=== PATIENT | male | born 1980 | race Caucasian/White ===

== ENCOUNTER 2017-10-09 20:38 | Emergency (ER) | payer SELFPAY ==
[~2017-10-09] VITALS: Ht 177.8 cm; Wt 81.6 kg
[2017-10-09 20:38] VITALS: BP 0/0
[2017-10-09] MEDS ORDERED: IBUPROFEN600 MG ORAL (21:46)
--- NOTE | 2017-10-11 22:49 | Emergency Room Report ---
History of Present Illness General Chief Complaint: General Complaint Source: EMS Present Illness Allergies: Coded Allergies: No Known Allergies (Unverified , 10/10/17) UNABLE TO ASSESS (Unverified , 10/09/17) Physical Exam Vital Signs Date Time Temp Pulse Resp B/P (MAP) Pulse Ox O2 Delivery O2 Flow Rate FiO2 10/09/17 20:38 0/0 Medical Decision Making Diagnostic Impression: Primary Impression: Encounter for generalized patient complaints Last Vital Signs Date Time Temp Pulse Resp B/P (MAP) Pulse Ox O2 Delivery O2 Flow Rate FiO2 10/09/17 20:38 0/0 Disposition: LEFT W/OUT BEING SEEN Condition: Unknown Referrals: NOT CHOSEN IPA/,REFERRING (PCP) ADRIA CHAN M.D. Oct 11, 2017 22:49
== END 2017-10-09 20:45 | disposition left against medical advice (07) ==
LOC: EDBD 20:38 → EMR 20:42 → EDBD 20:42 → EMR 20:45
DX: E86.0 Dehydration (principal); Z53.21 Procedure and treatment not carried out due to patient leaving prior to being seen by health care provider
CPT/HCPCS: 99281

== ENCOUNTER 2017-10-09 21:26 | Emergency (ER) | payer SELFPAY ==
[~2017-10-09] VITALS: Ht 185.4 cm; Wt 113.4 kg
[2017-10-09 21:38] VITALS: BP 165/89
[2017-10-09] MEDS ORDERED: IBUPROFEN600 MG ORAL (21:46)
--- NOTE | 2017-10-09 21:46 | Emergency Room Report ---
History of Present Illness General Chief Complaint: Wound Recheck/Suture Removal Source: Patient Present Illness HPI Is a 37-year-old male with no past medical history. He presents with chief complaint of pain to both feet. He said that his girlfriend kicked him out of the house he's been walking from [place] to here. The water versus 4 days. He has twisted to the sole sole of both feet. No other injury. Pain is 8/10. Worse with walking. Better with rest. Allergies: Coded Allergies: No Known Allergies (Unverified , 10/09/17) Patient History Past Medical History: see triage record, old chart reviewed Past Surgical History: none Pertinent Family History: none Social History: Reports: drug use Immunizations: other Reviewed Nursing Documentation: PMH: Agreed, PSxH: Agreed Nursing Documentation-PM Past Medical History: No Stated History Review of Systems Eye: Denies: eye pain, blurred vision ENT: Denies: ear pain, nose congestion, throat swelling Respiratory: Denies: cough, shortness of breath Cardiovascular: Denies: chest pain, palpitations Gastrointestinal: Denies: abdominal pain, diarrhea, nausea, vomiting Musculoskeletal: Denies: back pain, joint pain Skin: Denies: rash Neurological: Denies: headache, numbness Endocrine: Denies: increased thirst, increased urine Hematologic/Lymphatic: Denies: easy bruising All Other Systems: negative except mentioned in HPI Physical Exam Vital Signs Date Time Temp Pulse Resp B/P (MAP) Pulse Ox O2 Delivery O2 Flow Rate FiO2 10/09/17 21:34 97.9 91 14 165/89 99 Room Air vitals with high blood pressure Sp02 EP Interpretation: reviewed, normal General Appearance: well appearing, no apparent distress, alert Head: normocephalic, atraumatic Eyes: bilateral eye PERRL, bilateral eye EOMI ENT: hearing grossly normal, normal pharynx Neck: full range of motion, supple, no meningismus Respiratory: chest non-tender, lungs clear, normal breath sounds Cardiovascular #1: regular rate, rhythm, no murmur Gastrointestinal: normal bowel sounds, non tender, no mass, no organomegaly, no bruit, non-distended Musculoskeletal: back normal, gait/station normal, normal range of motion, other - Patient with blister to the ball of both feet. No infection. Psychiatric: mood/affect normal Skin: warm/dry Medical Decision Making Diagnostic Impression: Primary Impression: Blister (nonthermal), right foot, initial encounter Additional Impression: Blister (nonthermal), left foot, initial encounter ER Course Patient with blister from walking. No infection. We'll discharge home. Last Vital Signs Date Time Temp Pulse Resp B/P (MAP) Pulse Ox O2 Delivery O2 Flow Rate FiO2 10/09/17 21:38 97.9 14 165/89 99 Room Air 10/09/17 21:34 91 Status: improved Disposition: HOME, SELF-CARE Condition: Stable Scripts Ibuprofen* (MOTRIN*) 600 Mg Tablet 600 MG ORAL Q8H Y for For Pain, #30 TAB 0 Refills Prov: GAMA VARGHESE M.D. 10/09/17 Additional Instructions: Followup your DrTatum in 7 days. Elevate feet. Return if worse. GAMA VARGHESE M.D. Oct 09, 2017 21:46
[2017-10-09] MEDS: Bacitracin Oint UD TOPIC ONE (21:47)
[2017-10-09 21:54] VITALS: BP 165/89
== END 2017-10-09 22:54 | disposition home or self-care (01) ==
LOC: MERGE 21:39 → EMR 21:39
DX: S90.822A Blister (nonthermal), left foot, initial encounter (principal); S90.821A Blister (nonthermal), right foot, initial encounter; Y93.01 Activity, walking, marching and hiking; Y92.89 Other specified places as the place of occurrence of the external cause
CPT/HCPCS: 99283